=== PATIENT | female | born 1990 | race Caucasian/White ===

== ENCOUNTER 2016-07-16 05:02 | Day surgery (SDC) | payer OTHER ==
[2016-07-15 11:33] VITALS: BMI 25.2
[2016-07-16] MEDS ORDERED: MIDAZOLAM HCL 2 MG/2 ML SINGLE DOSE VIAL ONE ×2 (11:15→11:30)
[2016-07-16] MEDS ORDERED: IBUPROFEN 400 MG TABLET (FP) PO PRN (11:26)
[2016-07-16] MEDS ORDERED: ACETAMINOPHEN 325 MG TABLET (FP) PO PRN (11:26)
--- NOTE | 2016-07-16 11:26 | HP ---
History & Physical Update - History History: No Change - Physical Physical: No Change - Assessment Assessment: No Change - Plan Plan: No Change
--- NOTE | 2016-07-16 11:28 | OP ---
Operative Note - Note: Operative Date: 07/16/16 Pre-Operative Diagnosis: Missed Operation: Suction DC Post-Operative Diagnosis: Same as Pre-op Surgeon: Erika Álvarez Anesthesia: General Estimated Blood Loss (mls): 30 Operative Report Dictated: Yes
[2016-07-16] MEDS ORDERED: KETOROLAC TROMETHAMINE 30 MG/1 ML VIAL ONE (11:29)
[2016-07-16] MEDS ORDERED: DEXAMETHASONE SOD PHOSPHATE 4 MG/1 ML VIAL ONE (11:29)
[2016-07-16] MEDS ORDERED: PROPOFOL 20 ML ONE (11:30)
[2016-07-16] MEDS ORDERED: oxyCODONE HCL 5 MG TABLET PO PRN (11:55)
[2016-07-16] MEDS ORDERED: PROMETHAZINE HCL 25 MG/1 ML VIAL IVPUSH PRN (11:55)
[2016-07-16] MEDS ORDERED: ONDANSETRON 4 MG/2 ML VIAL IVPUSH PRN (11:55)
[2016-07-16 12:46] VITALS: TEMP 98.6
[2016-07-16 13:29] VITALS: BP 107/62; PULSE 78
--- NOTE | 2016-07-17 12:10 | PATH ---
Surgical Pathology Report Patient Name: KULWINDER HURTADO Med. Rec. #: [id number] /Age/Gender: 1990 (Age: 25) / F Account: [id number] Location: AMBULATORY SURG Taken: 07/16/2016 Received: 07/16/2016 Reported: 07/17/2016 Physicians: Erika Álvarez M.D. Specimen(s) Received CONTENTS OF CONCEPTION Clinical History Missed Final Diagnosis CONTENTS OF CONCEPTION: NO SOMATIC TISSUE IDENTIFIED. CHORIONIC VILLI PRESENT, PREDOMINANTLY HYDROPIC (SEE COMMENT). Comment: Chromosomal studies are pending; results will be reported in an addendum. Electronically Signed Yonis Mejia M.D. Gross Description Received fresh, labeled "contents of conception" is a 7.5 x 6.0 x 1.0 cm aggregate of jennings-pink soft tissue fragments. Villous tissue is identified. No definite somatic tissue is identified. A group sales representative portion is placed in RPMI solution and sent for chromosomal analysis. An additional group sales representative portion is submitted in one cassette for permanent sections. /07/16/201607/16/2016
== END 2016-07-16 13:30 | disposition home or self-care (01) ==
LOC: JASUSAT 05:02
PROVIDERS: ATTEND Obstetrics & Gynecology
PROC: 10D17ZZ Extraction of Products of Conception, Retained, Via Natural or Artificial Opening (ICD-10-PCS; principal; 2016-07-16 10:00)
DX: O02.1 Missed abortion (principal)
CPT/HCPCS: 88305-TC; 94760

== ENCOUNTER 2017-05-31 05:20 | Inpatient (IN) | payer OTHER ==
[~2017-05-31 05:20] MED LIST: AMPICILLIN - 2 GM in SODIUM CHLORIDE 100 ML IVPB ONE; BUTORPHANOL TARTRATE 1 MG/ML VIAL IVPUSH ONE; PROMETHAZINE HCL 25 MG/1 ML VIAL IVPUSH ONE
[2017-05-31] MEDS: ELECTROLYTE-148 SOLN 1,000 ML IV SCH ×3 (05:45→15:10)
[2017-05-31] MEDS ORDERED: PROMETHAZINE HCL 25 MG/1 ML VIAL ONE (05:58)
[2017-05-31] MEDS ORDERED: BUTORPHANOL TARTRATE 1 MG/ML VIAL ONE ×2 (05:58)
[2017-05-31 06:03] LABS: BASO % 0.2 % (0-2.0); EOS % 0.7 % (0-4.5); HEMATOCRIT 34.1 % (32.4-45.2); HEMOGLOBIN 11.6 GM/dL (10.7-15.3); LYMPH % 22.9 % (8-40); MEAN CELL VOLUME 85.4 fl (80-96); MEAN PLT VOLUME 8.5 fl (7.5-11.1); MONO % 6.2 % (3.8-10.2); PLATELET COUNT 253 K/MM3 (134-434); RDW 15.8 % (11.6-15.6); WHITE BLOOD COUNT 14.7 K/mm3 (4.0-10.0)
[2017-05-31 06:14] LABS: PROTHROMBIN TIME (PATIENT) 11.3 SEC (9.98-11.88)
[2017-05-31 06:16] LABS: ACTIVATED PTT 24.4 SECONDS (26.9-34.4)
[2017-05-31 06:27] VITALS: BMI 28.3
--- NOTE | 2017-05-31 08:13 | HP ---
Past Medical History - Admission Chief Complaint: Labor History Source: Patient Limitations to Obtaining History: No Limitations - Past Medical History ...: 2 ...Para: 0 ...Term: 0 ...: 0 ...Spon : 1 ...Induced : 0 ...Multiple Gestation: 0 ...LMP: 08/25/16 ... Weeks Gestation by Dates: 39.6 ...EDC by Dates: 06/01/17 ...EDC by Sono: 06/01/17 - Past Surgical History Past Surgical History: Yes: None Hx Myomectomy: No Hx Transabdominal Cerclage: No - Smoking History Smoking history: Never smoked Have you smoked in the past 12 months: No Aproximately how many cigarettes per day: 3 - Alcohol/Substance Use Hx Alcohol Use: No History of Substance Use: reports: None - Social History Usual Living Arrangement: Yes: With Spouse History of Recent Travel: No Home Medications - Allergies Allergies/Adverse Reactions: Allergies Allergy/AdvReac Type Severity Reaction Status Date / Time aloe Allergy Intermediate Rash Verified 07/15/16 11:35 No Known Drug Allergies Allergy Verified 07/15/16 11:36 - Home Medications Home Medications: Ambulatory Orders Tablet 1 tablet PO DAILY 05/31/17 Oxycodone HCl/Acetaminophen [Percocet 5-325 mg Tablet] 1 - 2 tab PO Q6H #20 tab MDD 6 06/03/17 Review of Systems - Review of Systems Constitutional: reports: No Symptoms Eyes: reports: No Symptoms HENT: reports: No Symptoms Neck: reports: No Symptoms Cardiovascular: reports: No Symptoms Respiratory: reports: No Symptoms Gastrointestinal: reports: No Symptoms Genitourinary: reports: No Symptoms Breasts: reports: No Symptoms Reported Musculoskeletal: reports: No Symptoms Integumentary: reports: No Symptoms Neurological: reports: No Symptoms Endocrine: reports: No Symptoms Hematology/Lymphatic: reports: No Symptoms Psychiatric: reports: No Symptoms Physical Exam - Maternity Vital Signs: Vital Signs Temperature 97.9 F 05/31/17 08:00 Pulse Rate 74 05/31/17 08:00 Respiratory Rate 20 05/31/17 08:00 Blood Pressure 122/68 05/31/17 08:00 O2 Sat by Pulse Oximetry (%) Constitutional: Yes: Well Nourished, No Distress Neck: Yes: WNL Cardiovascular: Yes: WNL Lungs: Clear to auscultation Breast(s): Yes: WNL - Abdominal Exam/OB Number of Fetuses: Single Presentation: Vertex Category: I Accelerations: Non-Uniform Decelerations: None - Vaginal Exam/OB Speculum Exam: No Dilatation (cm): 4 Effacement (%): 100 Amniotic Membrane Status: Intact Presentation: Vertex/Position - Physical Exam Musculoskeletal: Yes: WNL Extremities: Yes: WNL Edema: No - Labs Lab Results: CBC, BMP 05/31/17 05:50 05/31/17 05:50 Hemorrhage Risk Assessment - Risk Factors Risk Score: 0 Risk Level: Low Risk Problem List - Problems (1) Labor established Code(s): [id number] - Assessment/Plan IUP at 39 week in labor Cat 1 Plan Admit for delivery
[2017-05-31] MEDS ORDERED: BUTORPHANOL TARTRATE 1 MG/ML VIAL IVPUSH PRN (08:21)
[2017-05-31] MEDS ORDERED: FENTANYL/BUPIVACAINE/NS/PF - PCEA - 50 ML DISP.SYRIN EP ONE ×3 (08:36→17:50)
[2017-05-31] MEDS ORDERED: TUBERCULIN PPD 5 TU/0.1ML SYRINGE (IN PATIENT USE ONLY) ID ONE (09:00)
[2017-05-31] MEDS ORDERED: AMPICILLIN - 1 GM in SODIUM CHLORIDE 100 ML IVPB SCH (09:20)
[2017-05-31 09:36] LABS: ANION GAP 12 (8-16); BLOOD UREA NITROGEN 5 mg/dL (7-18); CALCIUM 8.4 mg/dL (8.5-10.1); CHLORIDE 106 mmol/L (98-107); CO2 21 mmol/L (21-32); CREATININE 0.7 mg/dL (0.55-1.02); GLUCOSE,RANDOM 88 mg/dL (74-106); POTASSIUM 3.8 mmol/L (3.5-5.1); SODIUM 139 mmol/L (136-145)
[2017-05-31] MEDS ORDERED: AMPICILLIN SODIUM 1 GM VIAL ONE (09:43)
--- NOTE | 2017-05-31 10:53 | PN ---
Ante-Partal Exam - Subjective Subjective: Pt desires epidural Vital Signs: Vital Signs Temperature 98.3 F 05/31/17 09:54 Pulse Rate 74 05/31/17 08:00 Respiratory Rate 20 05/31/17 08:00 Blood Pressure 122/68 05/31/17 08:00 O2 Sat by Pulse Oximetry (%) Bleeding: No Headache: No Visual changes: No Right upper quadrant pain: No - Contractions Contractions: Yes Regularity: Regular Intensity: Mild/Mod Monitor Mode: External - Exam during Labor Heart Rate: 140 Variability: Moderate Category: I Monitor Accelerations: Present Monitor Decelerations: None Exam: Vaginal Dilatation (cm): 4 Effacement (%): 100 Amniotic Membrane Status: Bulging Presentation: Vertex - Intrapartum Hemorrhage Risk Risk Score: 0 Risk Level: Low Risk - Assessment/Plan Assessment/Plan: IUP at 39 weeks Labor Plan Epidural continue present management
[2017-05-31] MEDS ORDERED: NALOXONE HCL 0.4 MG/ML VIAL IVPUSH PRN (11:02)
[2017-05-31] MEDS ORDERED: FENTANYL/BUPIVACAINE/NS/PF - PCEA - 50 ML DISP.SYRIN EP SCH (11:15)
[2017-05-31] MEDS ORDERED: OXYTOCIN 30 UNITS in 0.9% NS 30 UNIT/500 ML INFUS.BAG IVPB ONE (12:25)
--- NOTE | 2017-05-31 12:31 | PN ---
Ante-Partal Exam - Subjective Subjective: Pt comfortable with epidural. Vital Signs: Vital Signs Temperature 98.3 F 05/31/17 09:54 Pulse Rate 72 05/31/17 11:30 Respiratory Rate 18 05/31/17 11:30 Blood Pressure 107/64 05/31/17 11:30 O2 Sat by Pulse Oximetry (%) 100 05/31/17 11:30 Bleeding: No Headache: No Visual changes: No Right upper quadrant pain: No Pain (scale 1-10): 0 - Contractions Contractions: Yes Regularity: Regular (q2-4) Intensity: Mild/Mod - Exam during Labor Heart Rate: 150 Variability: Moderate Category: I Monitor Accelerations: Present Monitor Decelerations: None (last deceleration approx 30 minutes prior) Amniotic Membrane Status: Ruptured Presentation: Vertex - Assessment/Plan Assessment/Plan: 26 y/o P0 with SROM, early labor - AFVSS - FHTS cat 1 - early labor, minimal cervical change since admission, will start pitocin augmentation - GBS negative, no antibiotic ppx needed
[2017-05-31] MEDS ORDERED: OXYTOCIN 15 UNITS/ LR 250 ML 250 ML IVPB SCH (12:45)
[2017-05-31] MEDS ORDERED: OXYTOCIN 30 UNITS in 0.9% NS 30 UNIT/500 ML INFUS.BAG IVPB SCH (14:45)
--- NOTE | 2017-05-31 14:45 | PN ---
Ante-Partal Exam - Subjective Subjective: Came to evaluate patient for prolonged deceleration to the 70s (beats per minute ). Pitocin discontinued and mother turned to left side, O2 applied prior to my arrival. FHTs fully recovered upon my arrival to room. Mom comfortable, no pain with epidural. Vital Signs: Vital Signs Temperature 99.5 F 05/31/17 14:00 Pulse Rate 88 05/31/17 13:45 Respiratory Rate 18 05/31/17 13:45 Blood Pressure 117/74 05/31/17 13:45 O2 Sat by Pulse Oximetry (%) 100 05/31/17 13:45 Bleeding: Yes Bleeding Description: Mild (consistent with bloody show) Headache: No Visual changes: No Right upper quadrant pain: No - Contractions Contractions: Yes Regularity: Irregular Intensity: Mild/Mod - Exam during Labor Heart Rate: 160 Variability: Moderate Category: II (Cat 2 with prolonged decel, now category 1) Monitor Accelerations: Present Monitor Decelerations: Prolonged Exam: Vaginal Dilatation (cm): 6-7 Effacement (%): 100 Amniotic Membrane Status: Bulging (bulging forebag noted, AROMed at this time) Amniotic Fluid: Clear Presentation: Vertex Station: -2 - Assessment/Plan Assessment/Plan: D/C pitocin for expectant management at this time re evaluate in 1-2 hours (or sooner if issue with FHR) if tracing cat 1 will restart pitocin if no progress GBS negative- no antibiotics needed continue to follow closely
--- NOTE | 2017-05-31 21:27 | PN ---
Ante-Partal Exam - Subjective Subjective: Pt comfortable with epidural. Vital Signs: Vital Signs Temperature 99.8 F H 05/31/17 19:53 Pulse Rate 84 05/31/17 20:30 Respiratory Rate 18 05/31/17 20:30 Blood Pressure 100/57 05/31/17 20:30 O2 Sat by Pulse Oximetry (%) 100 05/31/17 20:30 Bleeding: No Headache: No Visual changes: No Right upper quadrant pain: No Pain (scale 1-10): 0 - Contractions Contractions: Yes Regularity: Regular Intensity: Mild/Mod - Exam during Labor Heart Rate: 155 Variability: Moderate Category: I Monitor Accelerations: Present Monitor Decelerations: Variable (non recurrent) Exam: Vaginal Dilatation (cm): 6-7 Effacement (%): 90 Amniotic Membrane Status: Ruptured Amniotic Fluid: Clear Presentation: Vertex Station: -1 - Assessment/Plan Assessment/Plan: Pt with minimal cervical change Discussed restarting pitocin vs. delivery pt desires delivery R/B/A discussed consents signed will inform anesthesia/neonatology
[2017-05-31] MEDS ORDERED: oxyCODONE HCL 5 MG TABLET PO PRN ×2 (22:11→22:27)
[2017-05-31] MEDS ORDERED: LIDO 2%/EPI 1:200000 PRESRVFRE (20 ML SDVIAL) ONE (22:13)
[2017-05-31] MEDS ORDERED: OXYTOCIN 20 UNITS in 0.9% NS 20 UNIT/1,000 ML INFUS.BAG IV SCH (22:15)
[2017-05-31] MEDS ORDERED: ceFAZolin SODIUM 1 GM VIAL ONE (22:21)
[2017-05-31] MEDS ORDERED: PHENYLEPHRINE HCL 10 MG/1 ML SINGLE DOSE VIAL ONE (22:21)
[2017-05-31] MEDS ORDERED: METHYLERGONOVINE MALEATE 0.2 MG/1 ML AMP IM PRN (22:26)
[2017-05-31] MEDS ORDERED: CITRIC ACID/SODIUM CITRATE 30 ML UNIT-DOSE CUP PO ONE (22:30)
[2017-05-31] MEDS ORDERED: OXYTOCIN 10 UNITS/ML VIAL ONE ×2 (22:40)
[2017-05-31] MEDS ORDERED: IBUPROFEN 600 MG TABLET (FP) PO PRN (22:47)
[2017-05-31] MEDS ORDERED: ACETAMINOPHEN 325 MG TABLET (FP) PO PRN (22:47)
[2017-05-31] MEDS ORDERED: MIDAZOLAM HCL 2 MG/2 ML SINGLE DOSE VIAL ONE (22:49)
--- NOTE | 2017-05-31 23:13 | OP ---
Operative Note - Note: Operative Date: 05/31/17 ([id number]) Pre-Operative Diagnosis: SIUP at term ,arrest of dilation Operation: primary low transverse delivery Findings: normal b/l tubes and ovaries gravid uterus normal intrapelvic anatomy Post-Operative Diagnosis: Same as Pre-op Surgeon: Lu Velasco Marine Driller: Mike Dubois Anesthesiologist/ACADEMIC INTERVENTIONIST: Kamari Villanueva Anesthesia: Epidural Specimens Removed: placenta, cord blood collection Estimated Blood Loss (mls): 600 Drains & Tubes with Location: holland catheter draining clear yellow urine Operative Report Dictated: Yes
[2017-06-01] MEDS ORDERED: IBUPROFEN 800 MG/8 ML IJ IVPB ONE (00:27)
[2017-06-01] MEDS ORDERED: OXYTOCIN 20 UNITS in 0.9% NS 20 UNIT/1,000 ML INFUS.BAG IV ONE (00:27)
[2017-06-01] MEDS: IBUPROFEN 800 MG/8 ML IJ IVPB PRN ×2 (00:30→09:00)
[2017-06-01] MEDS ORDERED: CEFAZOLIN 1 GM in DEXTROSE 5%-WATER - 50 ML IVPB SCH (02:00)
[2017-06-01] MEDS: CEFAZOLIN 1 GM/D5W 1 GM/50 ML BAG IVPB SCH ×2 (05:53→13:20)
--- NOTE | 2017-06-01 07:53 | OP ---
DATE OF OPERATION: 05/31/2017 PREOPERATIVE DIAGNOSIS: Single intrauterine at term and arrest of dilation. PROCEDURE: Primary low transverse section. SURGEON: Lu Velasco DO ASSISTANT GROCERY: SARAHI Song ANESTHESIA: Epidural, monitored by Kamari Villanueva MD. ESTIMATED BLOOD LOSS: 600 mL COMPLICATIONS: None. SPECIMENS REMOVED: Included the placenta as well as cord blood collection. DISPOSITION: Stable to PACU. BRIEF HISTORY AND PROCEDURE: Patient is a 26-year-old female who had been admitted to Labor and Delivery in early labor the ware carrier of May 31, 2017. Throughout the day, the patient did receive an epidural for pain control and was periodically placed on Pitocin for labor augmentation. However, the heart rate tracing continued to have prolonged decelerations while on Pitocin. Patient was then expectantly managed throughout the day, was tavia every 2-3 minutes without Pitocin. However, between the 4 o'clock and 9 o'clock hour, had made no cervical change. Discussion was held with the patient about options, and she elected to undergo a delivery. Consents were signed at that time. The patient was then taken back to the operating room and placed in the dorsal supine position on the operating room table. A hard timeout was performed. The patient was prepped and draped in the usual sterile fashion. A Pfannenstiel skin incision was created in the skin with a scalpel and carried to the underlying layer of rectus fascia with the Bovie. The fascia was incised on either side of the midline with the Bovie, and the fascial incision was extended in the superolateral direction with the Bovie. The fascia was tented upward and dissected off the underlying layer of rectus muscle sharply with the bovie. The midline of the musculature was identified and the muscles were laterally. The peritoneum was entered bluntly, and a bladder blade was inserted to protect the bladder. The lower uterine segment was identified, and a low transverse hysterotomy was completed with a scalpel and extended in the superolateral direction bluntly. The was then delivered from the left occiput transverse position without difficulty. Bilateral shoulders and remainder of infant delivered without difficulty, and the was taken over to the warmer to be assessed by the neonatology staff. The placenta was delivered with a 3-vessel cord and intact. The uterus was exteriorized from the abdomen, inspected and cleared of all membrane and debris with a dry lap sponge. The hysterotomy was reapproximated in a double- layer closure, first using 1 Vicryl suture in a running locked fashion, second layer using 0 Biosyn suture. Excellent hemostasis was achieved. The posterior cul-de-sac was suctioned. Bilateral tubes and ovaries were noted to be within normal limits. The uterus was placed back into the abdomen. Again, the hysterotomy was noted to be hemostatic. The parietal peritoneum was reapproximated in a running fashion using 2-0 chromic suture. The musculature was reapproximated in 2 interrupted sutures using a 0 Biosyn suture. The fascia was reapproximated using 1 Vicryl in a running fashion. Subcutaneous tissue was irrigated and any bleeding was stopped with the Bovie cautery and the subcutaneous tissue was reapproximated using 1 Vicryl suture in a running fashion. The skin was reapproximated in subcuticular fashion using 3-0 Vicryl, and Steri-Strips were applied. The patient tolerated the procedure well, recovering in stable condition in the L&D at the time of this dictation. Sponge needle and instrument counts were reported correct at the end of the case. LU VELASCO DO /[id number] MTDD
--- NOTE | 2017-06-01 08:24 | PN ---
Progress Note (short form) - Note Progress Note: Post op day#1.S/P C section under epidural anesthesia with Duramorph uneventful.Patient stable and has little pain for which she is on medication.No any anesthesia related problem.Patient DC from the anesthesia care.
[2017-06-01 08:34] LABS: BASO % 0.2 % (0-2.0); HEMATOCRIT 26.2 % (32.4-45.2); HEMOGLOBIN 8.7 GM/dL (10.7-15.3); LYMPH % 10.9 % (8-40); MCH 28.8 pg (25.7-33.7); MCHC 33.4 g/dl (32.0-36.0); MEAN CELL VOLUME 86.2 fl (80-96); MEAN PLT VOLUME 8.4 fl (7.5-11.1); MONO % 6.4 % (3.8-10.2); NEUT % 82.5 % (42.8-82.8); PLATELET COUNT 214 K/MM3 (134-434); RBC 3.04 M/mm3 (3.60-5.2); WHITE BLOOD COUNT 19.9 K/mm3 (4.0-10.0)
[2017-06-01] MEDS ORDERED: diphenhydrAMINE HCL 25 MG CAPSULE (FP) PO PRN (12:46)
--- NOTE | 2017-06-01 12:46 | PN ---
Post Progress Note - Subjective Subjective: Pt seen/evaluated, no complaints. Pain overall controlled. Holland catheter still in place. Not yet OOB. VB moderate and decreasing. Denies CP/SOB/F/C/ ALAN or other complaints. +flatus Type of Delivery: Primary C/S Vital Signs: Vital Signs Temperature 98.0 F 06/01/17 09:17 Pulse Rate 77 06/01/17 09:17 Respiratory Rate 18 06/01/17 09:17 Blood Pressure 102/56 06/01/17 09:17 O2 Sat by Pulse Oximetry (%) 96 06/01/17 01:54 Uterus: Yes: Fundus Firm, Fundus @ umbilicus Incision: Yes: Dressing dry and intact Abdomen/GI: Yes: Abdomen soft, Tender (appropriate post surgical tenderness), Passing flatus, Tolerating PO (clears). No: Abdominal Distention Perineum: Yes: Intact - Labs Labs: CBC WBC 19.9 K/mm3 (4.0-10.0) H D 06/01/17 07:31 RBC 3.04 M/mm3 (3.60-5.2) L D 06/01/17 07:31 Hgb 8.7 GM/dL (10.7-15.3) L D 06/01/17 07:31 Hct 26.2 % (32.4-45.2) L D 06/01/17 07:31 MCV 86.2 fl (80-96) 06/01/17 07:31 MCH 28.8 pg (25.7-33.7) 06/01/17 07:31 MCHC 33.4 g/dl (32.0-36.0) 06/01/17 07:31 RDW 16.0 % (11.6-15.6) H 06/01/17 07:31 Plt Count 214 K/MM3 (134-434) 06/01/17 07:31 MPV 8.4 fl (7.5-11.1) 06/01/17 07:31 Neutrophils % 82.5 % (42.8-82.8) 06/01/17 07:31 Lymphocytes % 10.9 % (8-40) D 06/01/17 07:31 Monocytes % 6.4 % (3.8-10.2) 06/01/17 07:31 Eosinophils % 0.0 % (0-4.5) D 06/01/17 07:31 Basophils % 0.2 % (0-2.0) 06/01/17 07:31 Problem List - Problems (1) delivery delivered Code(s): O82 - ENCOUNTER FOR DELIVERY WITHOUT INDICATION (2) Pain at surgical incision Code(s): L76.82 - OTH POSTPROCEDURAL COMPLICATIONS OF SKIN, SUBCU Assessment/Plan 26 y/o POD#1 s/p primary delivery for arrest of dilation - AFVSS - regular diet, PO pain meds - d/c holland - ambulation - routine post op care
[2017-06-01] MEDS: SIMETHICONE 80 MG TAB.CHEW (FP) PO PRN (14:55)
[2017-06-01] MEDS: IBUPROFEN 600 MG TABLET (FP) PO PRN (14:55)
[2017-06-01] MEDS: ACETAMINOPHEN 325 MG TABLET (FP) PO PRN (14:56)
[2017-06-01] MEDS ORDERED: BISACODYL 10 MG SUPP.RECT RC PRN (22:11)
[2017-06-02] MEDS: SIMETHICONE 80 MG TAB.CHEW (FP) PO PRN ×3 (04:55→20:34)
[2017-06-02] MEDS: ACETAMINOPHEN 325 MG TABLET (FP) PO PRN ×3 (04:58→20:34)
[2017-06-02] MEDS: IBUPROFEN 600 MG TABLET (FP) PO PRN ×3 (05:00→20:34)
--- NOTE | 2017-06-02 22:09 | PN ---
Progress Note (SOAP) - Subjective Chief Complaint: Pt ambulating + flatis - Current Medications Current Medications: Active Medications Acetaminophen (Tylenol -) 650 mg PO Q4H PRN PRN Reason: FEVER Last Admin: 06/02/17 20:34 Dose: 650 mg Bisacodyl (Dulcolax Suppository -) 10 mg RC PRN PRN PRN Reason: CONSTIPATION Diphenhydramine HCl (Benadryl -) 25 mg PO Q6H PRN PRN Reason: FOR ITCHING Last Admin: 06/01/17 13:20 Dose: 25 mg Oxytocin/Sodium Chloride (Normal Saline+20 Units Oxytocin -) 20 unit in 1,000 mls @ 125 mls/hr IV ASDIR CECILLE Last Admin: 06/01/17 01:23 Dose: 125 mls/hr Ibuprofen (Motrin -) 600 mg PO Q4H PRN PRN Reason: PAIN LEVEL 1 - 3 Last Admin: 06/02/17 20:34 Dose: 600 mg Ibuprofen (Caldolor Injection -) 800 mg IVPB Q6H PRN PRN Reason: PAIN LEVEL 1 - 3 Last Admin: 06/01/17 09:00 Dose: 800 mg Methylergonovine Maleate (Methergine Injection -) 0.2 mg IM Q4H PRN PRN Reason: Excessive Bleeding (L&D) Oxycodone HCl (Roxicodone -) 5 mg PO Q4H PRN PRN Reason: PAIN LEVEL 4 - 6 Oxycodone HCl (Roxicodone -) 10 mg PO Q4H PRN PRN Reason: PAIN LEVEL 7 - 10 Simethicone (Mylicon -) 80 mg PO Q4H PRN PRN Reason: GAS Last Admin: 06/02/17 20:34 Dose: 80 mg - Objective Vital Signs: Vital Signs Temperature 98.3 F 06/02/17 21:00 Pulse Rate 81 06/02/17 21:00 Respiratory Rate 20 06/02/17 21:00 Blood Pressure 123/70 06/02/17 21:00 O2 Sat by Pulse Oximetry (%) 96 06/01/17 01:54 Constitutional: Yes: Well Nourished, No Distress Labs Lab Results: CBC, BMP 06/01/17 07:31 05/31/17 08:45 Problem List - Problems (1) Labor established Code(s): ATW6603 - Assessment/Plan POD 2 SP LISA garlandob
--- NOTE | 2017-06-03 07:22 | DS ---
Physical Exam-CERTIFIED MEDICATION AIDE Vital Signs: Vital Signs Temperature 98.3 F 06/02/17 21:00 Pulse Rate 81 06/02/17 21:00 Respiratory Rate 20 06/02/17 21:00 Blood Pressure 123/70 06/02/17 21:00 O2 Sat by Pulse Oximetry (%) 96 06/01/17 01:54 Constitutional: Yes: Well Nourished, No Distress HENT: Yes: WNL Neck: Yes: WNL Cardiovascular: Yes: WNL Respiratory: Yes: WNL, Regular, CTA Bilaterally Gastrointestinal: Yes: WNL, Normal Bowel Sounds, Soft ....Post : Yes: Uterus firm, Uterus non-tender Extremities: Yes: WNL Edema: No Integumentary: Yes: WNL Wound/Incision: Yes: Clean/Dry, Well Approximated Neurological: Yes: WNL, Alert, Oriented Labs: CBC, BMP 06/01/17 07:31 05/31/17 08:45 Delivery - Delivery Section: Low Flap Transverse Type of Anesthesia: Epidural Episiotomy/Laceration: None EBL (cc): 600 Delivery, Single - Stages of Labor Date 1st Stage Initiatied: 05/31/17 Time 1st Stage Initiated: 04:00 Date of Delivery: 05/31/17 Time of Delivery: 22:39 Time Placenta Delivered: 22:40 - Condition of Computer Aided Design Technician/Sales Marketing Present: Yes Name: Pooja Block Infant Gender: Male Weight: 7 lb 12 oz Position: Left, OT Total Hours ROM (Hrs/Mins): 8hrs/5mins - 1 Minute Total Score: 9 5 Minutes Total Score: 9 - Feeding Plan Initial Plan: Elected not to breastfeed exclusively throughout hospitalization Discharge Summary Reason For Visit: ADMIT LABOR Current Active Problems delivery delivered (Acute) Labor established (Acute) Pain at surgical incision (Acute) Procedures: Principal: Section Condition: Good - Instructions Diet, Activity, Other Instructions: Physical activity Resume your normal everyday activity as tolerated no heavy lifting or exercise until seen by your surgeon. You may walk unlimited queta of and climb stairs. You may resume driving the car when you feel safe and comfortable behind the wheel. No sexual activity as instructed. Wound care If you have a bandage, leave it on, and keep dry for 48-72 hours. After that time discard the outer bandage. If they are tapes on the skin under the out of bandage leave them in place. They will peel off in the next 7 to 10 days. Do Not Peel them off. You may shower the day after surgery. If there are tapes present on the skin, you may shower over them. Diet There are no dietary restrictions. Eat healthy, high-fiber foods. Drink 6 to 8 glasses of liquid each day. This will assist in keeping your bowels are regular. Pain management You may take Tylenol or acetaminophen or Ibuprofen (for example, Motrin, Advil etc.) from my pain prescription medication is ordered should be taken as prescribed for moderate to severe pain. Call MD for any of the following: Severe pain not relieved by medication Fever of 101 or higher Excessive bleeding or drainage on dressing Inability to urinate Dr. Erika Álvarez Extension Edger discharge instructions Physical activity Resume your normal everyday activity as tolerated no heavy lifting or exercise until seen by your surgeon. You may walk unlimited queta of and climb stairs. You may resume driving the car when you feel safe and comfortable behind the wheel. No sexual activity as instructed by Dr. Álvarez. Wound care If you have a bandage, leave it on, and keep dry for 48-72 hours. After that time discard the outer bandage. If they are tapes on the skin under the out of bandage leave them in place. They will peel off in the next 7 to 10 days. Do Not Peel them off. You may shower the day after surgery. If there are tapes present on the skin, you may shower over them. Diet There are no dietary restrictions. Eat healthy, high-fiber foods. Drink 6 to 8 glasses of liquid each day. This will assist in keeping your bowels are regular. Pain management You may take Tylenol or acetaminophen or Ibuprofen (for example, Motrin, Advil etc.) from my pain prescription medication is ordered should be taken as prescribed for moderate to severe pain. Call Dr. Álvarez for any of the following: Severe pain not relieved by medication Fever of 101 or higher Excessive bleeding or drainage on dressing Inability to urinate Call the office at [phone] for an appointment in seven days. Disposition: HOME - Home Medications Comprehensive Discharge Medication List: Ambulatory Orders Tablet 1 tablet PO DAILY 05/31/17 Oxycodone HCl/Acetaminophen [Percocet 5-325 mg Tablet] 1 - 2 tab PO Q6H #20 tab MDD 6 06/03/17
[2017-06-03 07:59] LABS: BASO % 0.2 % (0-2.0); EOS % 3.3 % (0-4.5); HEMATOCRIT 25.5 % (32.4-45.2); HEMOGLOBIN 8.7 GM/dL (10.7-15.3); LYMPH % 29.8 % (8-40); MCH 29.3 pg (25.7-33.7); MCHC 34.1 g/dl (32.0-36.0); MEAN CELL VOLUME 85.9 fl (80-96); MONO % 7.2 % (3.8-10.2); NEUT % 59.5 % (42.8-82.8); PLATELET COUNT 277 K/MM3 (134-434); RBC 2.97 M/mm3 (3.60-5.2); RDW 15.9 % (11.6-15.6); WHITE BLOOD COUNT 10.7 K/mm3 (4.0-10.0)
[2017-06-03 08:01] VITALS: BP 109/60; PULSE 73; TEMP 97.8
[2017-06-03] MEDS: SIMETHICONE 80 MG TAB.CHEW (FP) PO PRN ×2 (08:09→17:05)
[2017-06-03] MEDS: ACETAMINOPHEN 325 MG TABLET (FP) PO PRN ×2 (08:09→17:05)
[2017-06-03] MEDS: IBUPROFEN 600 MG TABLET (FP) PO PRN ×2 (08:09→17:05)
--- NOTE | 2017-06-07 15:05 | PATH ---
Surgical Pathology Report Patient Name: KULWINDER HURTADO [facility]. Rec. #: [id number] /Age/Gender: 1990 (Age: 26) / F Account: [id number] Location: [facility] OBS/GROUNDSMAN Taken: 05/31/2017 Received: 06/01/2017 Reported: 06/07/2017 Physicians: Lu Velasco M.D. Specimen(s) Received PLACENTA Clinical History , 39.6 weeks PCOS-previously on metformin, SPAB with D&C 07/2016 HPV Final Diagnosis PLACENTA, SECTION: 423 g THIRD TRIMESTER PLACENTA WITH TRIVASCULAR UMBILICAL CORD AND MILD ACUTE CHORIOAMNIONITIS. Electronically Signed Renee Rose M.D. Gross Description The specimen is received fresh labeled placenta and is a 423 gram, 18.0 x 15.5 x 2.2 cm. placenta with attached membranes and umbilical cord. The attached membranes are jennings, thick, cloudy and insert marginally. The umbilical cord measures 34 cm. in length and averages 1 cm. in diameter. The cord inserts eccentrically, 3.5 cm. to the nearest margin. No true knots or strictures are identified. Cut surface of the umbilical cord reveals 3 vessels. The surface is matos-blue with minimal fibrin deposition and appropriate caliber vessels. The maternal surface is red-brown with focal defects. Sectioning reveals red-brown, spongy parenchyma. No lesions are identified. Net Developer sections are submitted in three cassettes as follows: 1- membrane rolls and umbilical cord; 2-3- full thickness sections of placenta. 06/02/2017 [facility]06/02/2017
== END 2017-06-03 19:35 | disposition home or self-care (01) | DRG 540 ==
LOC: JLDR 05:20 → J3W 06-01 01:30
PROVIDERS: ADMIT Obstetrics & Gynecology; ATTEND Obstetrics & Gynecology
PROC: 10D00Z1 Extraction of Products of Conception, Low, Open Approach (ICD-10-PCS; principal; 2017-05-31)
DX: O62.0 Primary inadequate contractions (principal); Z3A.39 39 weeks gestation of pregnancy; Z37.0 Single live birth
CPT/HCPCS: 36415; 80048; 85025; 85610; 85730; 86593; 86850; 86900; 86901; 88307-TC

== ENCOUNTER 2017-07-12 12:20 | Emergency (ER) | payer OTHER ==
--- NOTE | 2017-07-12 12:37 | PDOC ---
History of Present Illness - General Chief Complaint: Rectal Bleed Stated Complaint: RECTAL BLEEDING Time Seen by Provider: 07/12/17 12:21 History Source: Patient Exam Limitations: No Limitations - History of Present Illness Travel History: No Initial Comments: 07/12/17 12:35 26 y/o female with rectal bleeding for the last week on/off, bright red blood. No abdominal or back pain. Denies fever, chills, SOB or chest pain. No fall or trauma. Had a baby 1 1/2 months ago. Today had more rectal bleeding than usual. Patient states her stool has been hard. Denies abdominal pain. Timing/Duration: reports: intermittent Quality: reports: mild Pain Radiation: reports: no radiation Past History - Past Medical History Allergies/Adverse Reactions: Allergies Allergy/AdvReac Type Severity Reaction Status Date / Time aloe Allergy Intermediate Rash Verified 07/15/16 11:35 No Known Drug Allergies Allergy Verified 07/15/16 11:36 Home Medications: Ambulatory Orders Control Pill 1 tab PO DAILY 07/12/17 Anemia: No Asthma: No Cancer: No Cardiac Disorders: No CVA: No COPD: No CHF: No Dementia: No Diabetes: No GI Disorders: No Disorders: Yes (PCOS) HTN: No Hypercholesterolemia: No Liver Disease: No Seizures: No Thyroid Disease: No - Suicide/Smoking/Psychosocial Hx Smoking Status: No Smoking History: Never smoked Have you smoked in the past 12 months: No Number of Cigarettes Smoked Daily: 3 Hx Alcohol Use: No Drug/Substance Use Hx: No Substance Use Type: None Hx Substance Use Treatment: No Review of Systems - Review of Systems Able to Perform ROS?: Yes Is the patient limited Cambodian proficient: No Constitutional: No: Chills, Fever HEENTM: No: Blurred Vision Respiratory: No: Cough, Shortness of Breath Cardiac (ROS): No: Chest Pain ABD/GI: No: Abdominal Distended, Nausea, Vomiting, Abdominal cramping : No: Burning, Dysuria All Other Systems: Reviewed and Negative *Physical Exam - Physical Exam General Appearance: Yes: Nourished, Appropriately Dressed. No: Apparent Distress HEENT: positive: EOMI, PAULA, Normal ENT Inspection, Normal Voice, Symmetrical Neck: positive: Trachea midline, Normal Thyroid, Supple. negative: Tender, Rigid Respiratory/Chest: positive: Lungs Clear, Normal Breath Sounds. negative: Chest Tender, Respiratory Distress Cardiovascular: positive: Regular Rhythm, Regular Rate, S1, S2. negative: Edema , JVD, Murmur Vascular Pulses: Femoral (R): 4+, Femoral (L): 4+, Carotid (R): 4+, Carotid (L) : 4+, Dorsalis-Pedis (R): 4+, Doralis-Pedis (L): 4+ Gastrointestinal/Abdominal: positive: Normal Bowel Sounds, Flat, Soft. negative : Tender, Organomegaly, Pulsatile Mass Rectal Exam: positive: heme negative stool, normal rectal tone. negative: normal exam (2 small external hemorrhoids noted, good rectal tone no internal hemorrhoids noted, Nurse Yash present on exam) Lymphatic: negative: Adenopathy, Tenderness, Other Musculoskeletal: positive: Normal Inspection. negative: CVA Tenderness Extremity: positive: Normal Capillary Refill, Normal Inspection, Normal Range of Motion Integumentary: positive: Normal Color, Dry, Warm Neurologic: positive: garment cutter II-XII NML intact, Fully Oriented, Alert, Normal Mood/ Affect, Normal Response, Motor Strength 5/5 Progress Note - Progress Note Progress Note: 26 y/o female with rectal bleeding intermittent, gauaic negative. Vital stable, will refer to GI If worsen return to ER Use stool softener as well. Pt is in agreement with plan. *DC/Admit/Observation/Transfer Diagnosis at time of Disposition: Hemorrhoid Qualifiers: Hemorrhoid type: unspecified Qualified Code(s): K64.9 - Unspecified hemorrhoids - Discharge Dispostion Disposition: HOME Condition at time of disposition: Good Decision to Admit order: No - Referrals Referrals: Jose Alfredo Quan MD [Staff Physician] - - Patient Instructions Printed Discharge Instructions: DI for Hemorrhoids, DI for Rectal Bleeding Additional Instructions: Fluids, rest Stool softener Follow up with Program Manufacturing Leader If worsen return to ER - Post Discharge Activity
[2017-07-12 12:46] VITALS: BP 106/68; PULSE 72; TEMP 98.8; BMI 24.4
== END 2017-07-12 13:14 | disposition home or self-care (01) ==
LOC: FER 12:20
DX: K64.9 Unspecified hemorrhoids (principal); E28.2 Polycystic ovarian syndrome
CPT/HCPCS: 36415; 82272; 99282-25

== ENCOUNTER 2019-04-21 08:41 | Day surgery (SDC) | payer OTHER ==
[2019-04-21] MEDS ORDERED: USTEKINUMAB IV ONE (10:00)
[2019-04-21] MEDS ORDERED: SODIUM CHLORIDE IV ONE (10:00)
[2019-04-21 14:20] VITALS: TEMP 98.1
[2019-04-21 14:45] VITALS: BP 99/63; PULSE 73
== END 2019-04-21 11:30 | disposition home or self-care (01) ==
LOC: JASU-SURG 08:41 → J7W 08:42 → JASU-SURG 11:30
PROVIDERS: ATTEND Internal Medicine Gastroenterology
PROC: 3E033GC Introduction of Other Therapeutic Substance into Peripheral Vein, Percutaneous Approach (ICD-10-PCS; principal; 2019-04-21)
DX: K51.90 Ulcerative colitis, unspecified, without complications (principal)
CPT/HCPCS: J3358

== ENCOUNTER 2020-07-05 20:08 | Emergency (ER) | payer OTHER ==
[2020-07-05 20:18] VITALS: BP 111/65; PULSE 68; TEMP 98.2; BMI 24.7
== END 2020-07-05 20:34 | disposition home or self-care (01) ==
LOC: FER 20:08
DX: R59.9 Enlarged lymph nodes, unspecified (principal); T50.B95A Adverse effect of other viral vaccines, initial encounter
CPT/HCPCS: 99281-25

== ENCOUNTER 2023-02-28 04:15 | Inpatient (IN) | payer OTHER ==
[2023-02-28] MEDS ORDERED: ELECTROLYTE-148 SOLN 1,000 ML IV SCH ×2 (04:35→05:30)
[2023-02-28] MEDS ORDERED: PROMETHAZINE HCL 25 MG/1 ML VIAL IVPB ONE (04:35)
[2023-02-28] MEDS ORDERED: BUTORPHANOL TARTRATE 1 MG/ML VIAL IVPB ONE (04:35)
[2023-02-28] MEDS ORDERED: PROMETHAZINE HCL 25 MG/1 ML VIAL ONE (04:41)
[2023-02-28 04:43] LABS: BASO % 0.1 % (0-2.0); HEMATOCRIT 40.5 % (32.4-45.2); HEMOGLOBIN 13.4 GM/dL (10.7-15.3); MCH 29.3 pg (25.7-33.7); MCHC 33.1 g/dl (32.0-36.0); MEAN CELL VOLUME 88.6 fl (80-96); NEUT % 89.9 % (42.8-82.8); PLATELET COUNT 302 10^3/uL (134-434); RBC 4.57 M/mm3 (3.60-5.2); RDW 14.6 % (11.6-15.6); WHITE BLOOD COUNT 18.3 K/mm3 (4.0-10.0)
[2023-02-28 04:49] LABS: INR 0.94 (0.83-1.09); PROTHROMBIN TIME (PATIENT) 10.9 SEC (9.7-13.0)
[2023-02-28 04:52] LABS: ACTIVATED PTT 25.2 SECONDS (25.2-36.5)
[2023-02-28 05:03] LABS: POTASSIUM 3.7 mmol/L (3.5-5.1)
[2023-02-28 05:04] LABS: CALCIUM 8.3 mg/dL (8.5-10.1)
[2023-02-28 05:05] LABS: BLOOD UREA NITROGEN 6.3 mg/dL (7-18)
[2023-02-28 05:08] LABS: CREATININE 0.6 mg/dL (0.55-1.3)
[2023-02-28] MEDS ORDERED: IBUPROFEN 800 MG/8 ML IJ IVPB PRN (05:18)
[2023-02-28] MEDS ORDERED: WITCH HAZEL 50% (TUCKS) 40 PAD/JAR PAD TP PRN (05:18)
[2023-02-28] MEDS ORDERED: ACETAMINOPHEN 325 MG TABLET (FP) PO PRN (05:18)
[2023-02-28] MEDS ORDERED: METHYLERGONOVINE MALEATE 0.2 MG/1 ML AMP IM PRN (05:18)
[2023-02-28 05:24] VITALS: BMI 29.9
[2023-02-28] MEDS ORDERED: ceFAZolin SODIUM 1 GM VIAL ONE (06:15)
[2023-02-28] MEDS: CEFAZOLIN SODIUM 2 GM in DEXTROSE 5%-WATER 100 ML IVPB SCH ×2 (06:20→14:59)
[2023-02-28] MEDS ORDERED: morphine SULFATE/PF 1 MG/2 ML (2cc Syringe - QUVA) ONE (06:23)
[2023-02-28] MEDS ORDERED: FENTANYL CITRATE/PF 50 MCG/ML VIAL ONE (06:23)
[2023-02-28] MEDS ORDERED: AZITHROMYCIN IVPB 500 MG/250 ML BAG IVPB ONE (06:42)
[2023-02-28] MEDS ORDERED: OXYTOCIN 20 UNITS in 0.9% NS 20 UNIT/1,000 ML INFUS.BAG IV ONE (07:36)
[2023-02-28 07:45] LABS: CORD HCO3 23.4 mmHg (20-29); CORD PCO2 79.4 mmHg (30-78); CORD pH 7.087 (7.14-7.44)
[2023-02-28] MEDS: OXYTOCIN 20 UNITS in 0.9% NS 20 UNIT/1,000 ML INFUS.BAG IV SCH ×2 (07:45→21:30)
[2023-02-28 08:03] LABS: CORD PCO2 71.3 mmHg (30-78); CORD pH 7.108 (7.14-7.44)
[2023-02-28] MEDS: PRENATAL VITAMINS W/ FOLIC ACID TABLET (FP) PO SCH (10:00)
[2023-02-28] MEDS: FERROUS SO4 325 MG TABLET (FP) PO SCH ×2 (13:11→22:00)
[2023-02-28] MEDS ORDERED: oxyCODONE HCL 5 MG TABLET PO PRN ×2 (17:19)
[2023-02-28 17:25] LABS: BASO % 0.1 % (0-2.0); EOS % 0.1 % (0-4.5); HEMATOCRIT 31.4 % (32.4-45.2); HEMOGLOBIN 10.3 GM/dL (10.7-15.3); LYMPH % 9.9 % (8-40); MCH 29.4 pg (25.7-33.7); MCHC 32.9 g/dl (32.0-36.0); MEAN CELL VOLUME 89.5 fl (80-96); MEAN PLT VOLUME 8.8 fl (7.5-11.1); MONO % 7.1 % (3.8-10.2); NEUT % 82.8 % (42.8-82.8); PLATELET COUNT 221 10^3/uL (134-434); RBC 3.51 M/mm3 (3.60-5.2); RDW 14.9 % (11.6-15.6); WHITE BLOOD COUNT 17.4 K/mm3 (4.0-10.0)
[2023-03-01] MEDS: CEFAZOLIN SODIUM 2 GM in DEXTROSE 5%-WATER 100 ML IVPB SCH (00:28)
[2023-03-01] MEDS: SIMETHICONE 80 MG TAB.CHEW (FP) PO PRN ×2 (02:28→20:35)
[2023-03-01] MEDS ORDERED: BISACODYL 10 MG SUPP.RECT RC PRN (05:19)
[2023-03-01 08:53] LABS: BASO % 0.1 % (0-2.0); EOS % 0.2 % (0-4.5); HEMATOCRIT 35.8 % (32.4-45.2); HEMOGLOBIN 11.7 GM/dL (10.7-15.3); LYMPH % 13.3 % (8-40); MCH 29.6 pg (25.7-33.7); MCHC 32.8 g/dl (32.0-36.0); MEAN CELL VOLUME 90.3 fl (80-96); MONO % 5.7 % (3.8-10.2); NEUT % 80.7 % (42.8-82.8); PLATELET COUNT 267 10^3/uL (134-434); RBC 3.97 M/mm3 (3.60-5.2); RDW 15.2 % (11.6-15.6); WHITE BLOOD COUNT 17.5 K/mm3 (4.0-10.0)
[2023-03-01] MEDS: FERROUS SO4 325 MG TABLET (FP) PO SCH ×2 (10:48→22:23)
[2023-03-01] MEDS: PRENATAL VITAMINS W/ FOLIC ACID TABLET (FP) PO SCH (10:48)
[2023-03-01] MEDS: IBUPROFEN 600 MG TABLET (FP) PO PRN (20:35)
[2023-03-01] MEDS: SENNOSIDES/DOCUSATE COMBO (SENNA PLUS) TABLET (UD) PO PRN (22:23)
[2023-03-02] MEDS: FERROUS SO4 325 MG TABLET (FP) PO SCH ×2 (10:37→21:53)
[2023-03-02] MEDS: PRENATAL VITAMINS W/ FOLIC ACID TABLET (FP) PO SCH (10:37)
[2023-03-02] MEDS: IBUPROFEN 600 MG TABLET (FP) PO PRN ×2 (17:41→21:53)
[2023-03-02] MEDS: SENNOSIDES/DOCUSATE COMBO (SENNA PLUS) TABLET (UD) PO PRN (21:54)
[2023-03-03 08:05] LABS: BASO % 0.3 % (0-2.0); EOS % 4.8 % (0-4.5); HEMATOCRIT 34.9 % (32.4-45.2); HEMOGLOBIN 11.6 GM/dL (10.7-15.3); LYMPH % 25.1 % (8-40); MCH 29.8 pg (25.7-33.7); MCHC 33.1 g/dl (32.0-36.0); MEAN CELL VOLUME 89.9 fl (80-96); MEAN PLT VOLUME 8.2 fl (7.5-11.1); MONO % 5.8 % (3.8-10.2); PLATELET COUNT 291 10^3/uL (134-434); RBC 3.88 M/mm3 (3.60-5.2); RDW 14.6 % (11.6-15.6); WHITE BLOOD COUNT 9.1 K/mm3 (4.0-10.0)
[2023-03-03] MEDS: PRENATAL VITAMINS W/ FOLIC ACID TABLET (FP) PO SCH (09:15)
[2023-03-03] MEDS: FERROUS SO4 325 MG TABLET (FP) PO SCH (09:15)
[2023-03-03 10:54] VITALS: BP 104/67; PULSE 79; RESP 16; TEMP 97.9
== END 2023-03-03 12:40 | disposition home or self-care (01) | DRG 540 ==
LOC: JLDR 04:15 → J3W 09:49
PROVIDERS: ADMIT Obstetrics & Gynecology; ATTEND Obstetrics & Gynecology
PROC: 10D00Z1 Extraction of Products of Conception, Low, Open Approach (ICD-10-PCS; principal; 2023-02-28)
DX: O76 Abnormality in fetal heart rate and rhythm complicating labor and delivery (principal); O34.219 Maternal care for unspecified type scar from previous cesarean delivery; O66.40 Failed trial of labor, unspecified; Z3A.38 38 weeks gestation of pregnancy; Z37.0 Single live birth
CPT/HCPCS: 36415; 36600; 59025; 80048; 82803; 85025; 85610; 85730; 86780; 86850; 86900; 86901; 88307-TC

== ENCOUNTER 2023-04-04 20:44 | Emergency (ER) | payer OTHER ==
[2023-04-04 20:56] VITALS: BP 113/61; PULSE 74; RESP 15; TEMP 99.4; BMI 26.2
== END 2023-04-04 21:26 | disposition home or self-care (01) ==
LOC: FER 20:44
DX: R22.32 Localized swelling, mass and lump, left upper limb (principal); M79.642 Pain in left hand
CPT/HCPCS: 99282-25

== ENCOUNTER 2024-02-28 04:23 | Day surgery (SDC) | payer OTHER ==
[2024-02-25 10:42] VITALS: BMI 27.7
[2024-02-28] MEDS ORDERED: ACETAMINOPHEN 325 MG TABLET (FP) PO PRN (13:02)
[2024-02-28] MEDS ORDERED: IBUPROFEN 400 MG TABLET (FP) PO PRN (13:02)
[2024-02-28] MEDS ORDERED: METOCLOPRAMIDE HCL INJECTION 10 MG/2 ML VIAL ONE (13:24)
[2024-02-28] MEDS ORDERED: ONDANSETRON 4 MG/2 ML VIAL ONE (13:24)
[2024-02-28] MEDS ORDERED: DEXAMETHASONE SOD PHOSPHATE 4 MG/1 ML VIAL ONE (13:24)
[2024-02-28] MEDS ORDERED: LIDOCAINE HCL/PF 2% SDV 5ML VIAL ONE (13:24)
[2024-02-28] MEDS ORDERED: KETOROLAC TROMETHAMINE 30 MG/1 ML VIAL ONE (13:24)
[2024-02-28] MEDS ORDERED: PROPOFOL 20 ML ONE ×2 (13:27→14:01)
[2024-02-28] MEDS ORDERED: MIDAZOLAM HCL 2 MG/2 ML SINGLE DOSE VIAL ONE (13:30)
[2024-02-28] MEDS ORDERED: PHENYLEPHRINE HCL 10 MG/1 ML SINGLE DOSE VIAL ONE (13:58)
[2024-02-28] MEDS ORDERED: oxyCODONE HCL 5 MG TABLET PO PRN (15:16)
[2024-02-28] MEDS ORDERED: ONDANSETRON 4 MG/2 ML VIAL IVPUSH PRN (15:16)
[2024-02-28] MEDS ORDERED: LACTATED RINGERS SOLUTION 1,000 ML IV SCH (15:30)
[2024-02-28 15:56] VITALS: RESP 18; TEMP 97.8
[2024-02-28 16:40] VITALS: BP 119/70; PULSE 74
== END 2024-02-28 16:30 | disposition home or self-care (01) ==
LOC: JASU-SURG 04:23
PROVIDERS: ATTEND Obstetrics & Gynecology
PROC: 0UBC7ZX Excision of Cervix, Via Natural or Artificial Opening, Diagnostic (ICD-10-PCS; principal; 2024-02-28 11:45)
DX: N87.1 Moderate cervical dysplasia (principal); R87.810 Cervical high risk human papillomavirus (HPV) DNA test positive
CPT/HCPCS: 81025; 88305-TC; 88341-TC; 88342-TC; 93005; 93010; 94760